=== PATIENT | male | born 1960 | race Caucasian/White ===

== ENCOUNTER 2017-12-12 13:01 | Day surgery (SDC) | payer OTHER, SELFPAY ==
--- NOTE | 2017-12-07 19:33 | PM.PROC.1 ---
Procedures Date/Time Date of procedure: 12/12/17 General Procedure description: Date of service: [] Preoperative diagnoses: 1. Right [] Cataract Postoperative diagnoses: 1. Cataract [] Procedure: Phacoemulsification with posterior chamber intraocular lens implant Surgeon: Tiki Herrera MD Complications: [] Specimen: None Implant:ZCBOO+22.5 Blood loss: None Anesthesia: Retrobulbar with monitored standby Anesthesiologist: [] Anne-Marie Description of procedure: Patient is a male year old with decreased vision due to cataract which is affecting activities of daily living. He wants surgery to improve vision. He has taken to the operating room and given IV sedation. A retrobulbar block insert consisting of 6 cc of 2% xylocaine without epinephrine mixed half and half with 0.5% Marcaine with 1 cc of hyaluronidase added is placed between the medial and lateral 1/3 of the inferior orbital rim. Lid akinesia is obtain with 1% xylocaine with epinephrine infiltrated along the lid margin. The eye is manually massaged for 30 sec, prepped using Betadine solution, and draped in the usual sterile fashion. Temporal approach was made, a 1 mm side-port incision was made at the 7:30 position. Phenylephrine 1.5% mixed with 1% xylocaine 0.2 cc was placed into the anterior chamber. Viscoat followed by Monica was then placed. A 2.6 mm clear incision with a 2.6 mm blade was placed at the 170 degree meridian. A 360 degree capsulorrhexis style capsulotomy was then performed with a cystitome needle on a Healon. Hydrodelineation and hydrodissection were performed. The phacoemulsification unit is introduced, and sculpting notice used to groove the central lens. It is then removed in chopping mode. Epi nucleus is removed with epinuclear mode and irrigation aspiration was used to remove the peripheral cortex. The posterior capsule is polished. The intraocular lens is selected, inspected, power confirmed, and placed in the posterior chamber. The pupil was constricted. The wound was stromally hydrated and tested for leaks, there was none and was left sutureless. Vigamox 0.1 cc was placed into the anterior chamber. Kenalog 0.2 cc was placed in the superior subconjunctival space. A drop of antibiotic and was placed and the eye was patched and shielded. The patient was stable and returned to the recovery room in excellent condition. Dictated by: Tiki Herrera MD Copy to: [facility]
--- NOTE | 2017-12-07 19:35 | PM.PREOP ---
Pre-operative Note Interval Note Pre-op Check: History & Physical Reviewed by Physician
[2017-12-12 13:13] VITALS: BP 146/89; PULSE 67; RESP 16; TEMP 36.9; O2SAT 100; BMI 25.1
[2017-12-12] MEDS: CATARACT EYE COMPOUND (10 DROPS/SYRINGE) 3 DROPS EYE-OP (13:15)
[2017-12-12] MEDS: PROPARACAINE 0.5% OPHTH SOL 2 DROPS EYE-OP (13:15)
--- NOTE | 2017-12-12 13:26 | PM.PREOP ---
Pre-operative Note Interval Note Pre-op Check: Yes History & Physical Reviewed by Physician Changes: No
[2017-12-12] MEDS: BALANCED SALT IRRIG SOLN NO.2 15 ML IRRIG.SOLN IRR (14:40)
[2017-12-12] MEDS: CHONDROIDTIN/SOD HYALURONATE 1.05 ML SYRINGE INTRAOCULA (14:40)
[2017-12-12] MEDS: LIDOCAINE 1% W/EPI INJ 20 ML INJ (14:41)
[2017-12-12] MEDS: MOXIFLOXACIN OPHTH DROPS 3 ML BOTTLE 2 DROPS INJ (14:41)
[2017-12-12] MEDS: HYALURONATE SODIUM 10 MG/ML SYRINGE INJ (14:41)
[2017-12-12] MEDS: TOBRA/DEX 0.3%/0.1% OPHTH OINT 1 APPLIC EYE-RIGHT (14:42)
[2017-12-12] MEDS: TRIAMCINOLONE 50 MG/5 ML VIAL INJ (14:42)
[2017-12-12] MEDS: PHENYLEPHRINE/LIDOCAINE 3ML VIAL (OR) EYE-OP (14:42)
[2017-12-12] MEDS: LIDOCAINE 2% 4 ML, BUPIVACAINE 0.5% (PF) 4 ML, HYALURONIDASE 150 UNIT INJ (14:45)
[2017-12-12 15:07] VITALS: BP 133/87; PULSE 59; RESP 16; TEMP 36.1; O2SAT 100
--- NOTE | 2017-12-12 15:11 | PM.OP.1 ---
Procedure & Clinicians Procedure: Date of service: November Preoperative diagnoses: 1. Right cortical Cataract Postoperative diagnoses: 1. Cataract status phacoemulsification and posterior chamber intraocular insertion Procedure: Phacoemulsification with posterior chamber intraocular lens implant Surgeon: Tiki Herrera MD Complications: None Specimen: None Implant: ZCBOO+22.5D Blood loss: None Anesthesia: Retrobulbar with monitored standby Anesthesiologist: Marcus Wolfe M.D. Description of procedure: Patient is a 57 year old with decreased vision due to cataract which is affecting activities of daily living. 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 He wants surgery to improve vision. He has taken to the operating room and given IV sedation. A retrobulbar block insert consisting of 6 cc of 2% xylocaine without epinephrine mixed half and half with 0.5% Marcaine with 1 cc of hyaluronidase added is placed between the medial and lateral 1/3 of the inferior orbital rim. Lid akinesia is obtain with 1% xylocaine with epinephrine infiltrated along the lid margin. The eye is manually massaged for 30 sec, prepped using Betadine solution, and draped in the usual sterile fashion. Temporal approach was made, a 1 mm side-port incision was made at the 7:30 position. Phenylephrine 1.5% mixed with 1% xylocaine 0.2 cc was placed into the anterior chamber. Viscoat followed by Monica was then placed. A 2.6 mm clear incision with a 2.6 mm blade was placed at the 170 degree meridian. A 360 degree capsulorrhexis style capsulotomy was then performed with a cystitome needle on a Healon and completed with a Utrata forcep. Hydrodelineation and hydrodissection were performed. The phacoemulsification unit is introduced, and sculpting notice used to groove the central lens. It is then removed in chopping mode. Epi nucleus is removed with epinuclear mode and irrigation aspiration was used to remove the peripheral cortex. The posterior capsule is polished. The intraocular lens is selected, inspected, power confirmed, and placed in the posterior chamber. The pupil was constricted. The wound was stromally hydrated and tested for leaks, there was none and was left sutureless. Vigamox 0.1 cc was placed into the anterior chamber. Kenalog 0.2 cc was placed in the superior subconjunctival space. A drop of antibiotic and was placed and the eye was patched and shielded. The patient was stable and returned to the recovery room in excellent condition. Dictated by: Tiki Herrera MD Copy to: [facility]
--- NOTE | 2017-12-12 16:38 | PM.OP.1 ---
Operative Date/Time/Diagnoses Date of procedure: 12/12/17 Time of procedure: 15:00 Pre-op diagnosis: Right cataract.See operative report.
== END 2017-12-12 15:22 | disposition home or self-care (01) ==
LOC: OR 13:03
PROVIDERS: PCP Internal Medicine; Visit Provider Ophthalmology
DX: H25.11 Age-related nuclear cataract, right eye (principal)
CPT/HCPCS: J2250; J2704; J3010; J3301; J3470

== ENCOUNTER 2017-12-19 09:14 | Day surgery (SDC) | payer OTHER, SELFPAY ==
--- NOTE | 2017-11-30 17:29 | P.OP.PRE_ITS ---
Pre-operative Note Interval Note Pre-op Check: History & Physical Reviewed by Physician
[2017-12-19 11:10] VITALS: BP 145/83; PULSE 73; RESP 16; TEMP 36.6; O2SAT 97; BMI 25.7
[2017-12-19] MEDS: PROPARACAINE 0.5% OPHTH SOL 2 DROPS EYE-OP (11:18)
--- NOTE | 2017-12-19 11:20 | PM.PREOP ---
Pre-operative Note Interval Note Pre-op Check: Yes History & Physical Reviewed by Physician Changes: No H&P completed within 30 days and has changed as indicated here:: Arm rash. no eye findings. Can proceed with surgery.
[2017-12-19] MEDS: CATARACT EYE COMPOUND (10 DROPS/SYRINGE) 3 DROPS EYE-OP (11:24)
--- NOTE | 2017-12-19 12:35 | PM.OP.1 ---
Procedure & Clinicians Procedure: Date of service: December 19, 2017 Preoperative diagnoses: 1. Nuclear sclerotic Cataract 2. Allergic rash Postoperative diagnoses: 1. Cataract status post cataract removal with posterior chamber interocular lens implant and use of capsular dye for visibility. Procedure: Phacoemulsification with posterior chamber intraocular lens implant Surgeon: Tiki Herrera MD Complications: None Specimen: None Implant: +23.0 Blood loss: None Anesthesia: Retrobulbar with monitored standby Anesthesiologist: Prabhu Khan M.D. 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 He wants surgery to improve vision. He has taken to the operating room and given IV sedation. A retrobulbar block insert consisting of 6 cc of 2% xylocaine without epinephrine mixed half and half with 0.5% Marcaine with 1 cc of hyaluronidase added is placed between the medial and lateral 1/3 of the inferior orbital rim. Lid akinesia is obtain with 1% xylocaine with epinephrine infiltrated along the lid margin. The eye is manually massaged for 30 sec, prepped using Betadine solution, and draped in the usual sterile fashion. Temporal approach was made, a 1 mm side-port incision was made at the 12 o'clock meridian. Phenylephrine 1.5% mixed with 1% xylocaine 0.2 cc was placed into the anterior chamber. To improve visibility an air bubble was placed followed by capsular dye. Viscoat followed by Healon was then placed. A 2.6 mm clear incision with a 2.6 mm blade was placed at the 3 o'clock meridian. A 360 degree capsulorrhexis style capsulotomy was then performed with a cystitome needle on a Healon. Hydrodelineation and hydrodissection were performed. The phacoemulsification unit is introduced, and sculpting notice used to groove the central lens. It is then removed in chopping mode. Epi nucleus is removed with epinuclear mode and irrigation aspiration was used to remove the peripheral cortex. The posterior capsule is polished. The intraocular lens is selected, inspected, power confirmed, and placed in the posterior chamber. The pupil was constricted. The wound was stromally hydrated and tested for leaks, there was none and was left sutureless. Vigamox 0.1 cc was placed into the anterior chamber. Kenalog 0.2 cc was placed in the superior subconjunctival space. A drop of antibiotic and was placed and the eye was patched and shielded. The patient was stable and returned to the recovery room in excellent condition. Dictated by: Tiki Herrera MD Copy to: [facility]
--- NOTE | 2017-12-19 12:38 | P.OP_ITS ---
Procedure & Clinicians Procedure: Date of service: December 19, 2017 Preoperative diagnoses: 1. Nuclear sclerotic Cataract 2. Allergic rash Postoperative diagnoses: 1. Cataract status post cataract removal with posterior chamber interocular lens implant and use of capsular dye for visibility. Procedure: Phacoemulsification with posterior chamber intraocular lens implant Surgeon: Tiki Herrera MD Complications: None Specimen: None Implant: +23.0 Blood loss: None Anesthesia: Retrobulbar with monitored standby Anesthesiologist: Prabhu Khan M.D. 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 He wants surgery to improve vision. He has taken to the operating room and given IV sedation. A retrobulbar block insert consisting of 6 cc of 2% xylocaine without epinephrine mixed half and half with 0.5% Marcaine with 1 cc of hyaluronidase added is placed between the medial and lateral 1/3 of the inferior orbital rim. Lid akinesia is obtain with 1% xylocaine with epinephrine infiltrated along the lid margin. The eye is manually massaged for 30 sec, prepped using Betadine solution, and draped in the usual sterile fashion. Temporal approach was made, a 1 mm side-port incision was made at the 12 o' clock meridian. Phenylephrine 1.5% mixed with 1% xylocaine 0.2 cc was placed into the anterior chamber. To improve visibility an air bubble was placed followed by capsular dye. Viscoat followed by Healon was then placed. A 2.6 mm clear incision with a 2.6 mm blade was placed at the 3 o'clock meridian. A 360 degree capsulorrhexis style capsulotomy was then performed with a cystitome needle on a Healon. Hydrodelineation and hydrodissection were performed. The phacoemulsification unit is introduced, and sculpting notice used to groove the central lens. It is then removed in chopping mode. Epi nucleus is removed with epinuclear mode and irrigation aspiration was used to remove the peripheral cortex. The posterior capsule is polished. The intraocular lens is selected, inspected, power confirmed, and placed in the posterior chamber. The pupil was constricted. The wound was stromally hydrated and tested for leaks, there was none and was left sutureless. Vigamox 0.1 cc was placed into the anterior chamber. Kenalog 0.2 cc was placed in the superior subconjunctival space. A drop of antibiotic and was placed and the eye was patched and shielded. The patient was stable and returned to the recovery room in excellent condition. Dictated by: Tiki Herrera MD Copy to: [facility]
[2017-12-19] MEDS: CARBACHOL 1.5 ML VIAL INJ (13:13)
[2017-12-19] MEDS: LIDOCAINE 1% W/EPI INJ 20 ML INJ (13:13)
[2017-12-19] MEDS: CHONDROIDTIN/SOD HYALURONATE 1.05 ML SYRINGE INTRAOCULA (13:13)
[2017-12-19] MEDS: BALANCED SALT IRRIG SOLN NO.2 15 ML IRRIG.SOLN IRR (13:13)
[2017-12-19] MEDS: HYALURONATE SODIUM 10 MG/ML SYRINGE INJ (13:13)
[2017-12-19] MEDS: MOXIFLOXACIN OPHTH DROPS 3 ML BOTTLE 2 DROPS INJ (13:14)
[2017-12-19] MEDS: NEOMYCIN/POLY/DEX OPHTH OINT 1 APPLIC EYE-LEFT (13:14)
[2017-12-19] MEDS: OFLOXACIN 0.3% OPHTH 5 ML 2 DROPS EYE-LEFT (13:15)
[2017-12-19] MEDS: PHENYLEPHRINE/LIDOCAINE 3ML VIAL (OR) EYE-OP (13:15)
[2017-12-19] MEDS: TRYPAN BLUE 0.5 ML SYRINGE INJ (13:16)
[2017-12-19] MEDS: BALANCED SALT IRRIG SOLN NO.2 500 ML, EPINEPHrine 1 MG IRR (13:16)
[2017-12-19] MEDS: TRIAMCINOLONE 50 MG/5 ML VIAL INJ (13:16)
[2017-12-19] MEDS: LIDOCAINE 2% 4 ML, BUPIVACAINE 0.5% (PF) 4 ML, HYALURONIDASE 150 UNIT INJ (13:16)
[2017-12-19] MEDS: LIDOCAINE JELLY 2% 5 ML 1 APPLIC TOP (13:18)
[2017-12-19 13:39] VITALS: BP 138/94; PULSE 69; RESP 16; TEMP 36.2; O2SAT 98
== END 2017-12-19 13:57 | disposition home or self-care (01) ==
PROVIDERS: PCP Internal Medicine; Visit Provider Ophthalmology
DX: H25.12 Age-related nuclear cataract, left eye (principal)
CPT/HCPCS: J0171; J2704; J3010; J3301; J3470

== ENCOUNTER 2019-07-22 07:35 | Day surgery (SDC) | payer OTHER, SELFPAY ==
[2019-07-22 08:13] VITALS: BP 154/90; PULSE 75; RESP 18; TEMP 36.8; O2SAT 99; BMI 26.5
[2019-07-22] MEDS: SODIUM CHLORIDE 0.9% 1,000 ML 200 ML IV (08:20)
--- NOTE | 2019-07-22 08:42 | PM.HP.1 ---
History of Present Illness History of Present Illness Date Patient Seen: 07/22/19 Time Patient Seen: 08:42 Chief complaint: [id number] Narrative: Patient is a gentleman here for screening colonoscopy. His last exam was 5 years ago. He had polyps removed at that time. Patient History Surgical History (Updated 07/22/19 @ 08:42 by Desean Munson MD) H/O bilateral cataract extraction (Acute) Family & Social History Social History: household members spouse Tobacco & Substance use: Smoking Status Never smoker alcohol intake current alcohol intake frequency a few times a week Substance Use Type does not use Meds Home Medications and Allergies Allergies Allergy/AdvReac Type Severity Reaction Status Date / Time No Known Drug Allergies Allergy Verified 07/22/19 08:19 Review of Systems Review of Systems ROS: Yes All systems reviewed with the patient and are negative except as otherwise documented Exam Vital Signs (past 8 hours): - 07/22/19 08:13 Temperature 98.3 F Pulse Rate 75 Respiratory Rate 18 Blood Pressure 154/90 H Pulse Oximetry 99 Oxygen Delivery Method Room Air Narrative Exam Narrative: Pleasant cooperative patient no apparent distress. Lungs are clear to auscultation. No rales or rhonchi. Heart regular rate and rhythm no murmur gallop. Abdomen is soft nontender without mass. No obvious hernias. Patient is alert and oriented x3. Assessment & Plan Assessment & Plan narrative: The patient for a screening colonoscopy. I have discussed the procedure with them. Risks of bleeding, perforation which would necessitate major operation, failure to find remove all lesions, the potential tattoo were all discussed. All questions were answered. They wished to proceed.
--- NOTE | 2019-07-22 08:43 | PM.PREOP ---
Pre-operative Note Interval Note History & Physical reviewed/Exam performed by Physician: Yes Changes to H&P: No ASA Class (for procedural sedation): I
[2019-07-22] MEDS: fentaNYL 250 MCG/5 ML INJ IV (09:02)
[2019-07-22] MEDS: MIDAZOLAM 5 MG/ML VIAL 4 MG IV (09:03)
[2019-07-22 09:18] VITALS: BP 121/83; PULSE 87; RESP 13; TEMP 36.6; O2SAT 95
[2019-07-22 09:23] VITALS: BP 118/79; PULSE 91; RESP 10; O2SAT 95
--- NOTE | 2019-07-22 09:34 | PM.OP.ENDO ---
Operative Date/Time/Diagnoses Date of procedure: 07/22/19 Time of procedure: 09:34 Pre-op diagnosis: Screening. Last exam 5 years ago. Post-op diagnosis: same (Sigmoid diverticulosis) Procedure & Clinicians Study performed: Colonoscopy Same procedure as scheduled: Yes Indications: Screening Surgeon: Desean Munson Procedure Notes SCOAP/Timeout: Performed Procedure in detail: The patient was placed in the left lateral decubitus position and underwent IV sedation directed by the surgeon consisting of fentanyl and Versed. Digital exam was unremarkable. The scope was inserted and advanced through the rectum into the sigmoid, descending, transverse, and ascending colon. The patient was repositioned pressure applied a stiffener inserted and I finally made my way to visualize a portion of the cecum which was unremarkable. The scope was gradually brought out. No Polyps were found. The scope ultimately was retroflexed in the rectum. The appearance was normal. The scope was removed and the patient tolerated the procedure well. Prep was good. Scope withdrawal time: 6 minutes Sedation minutes: 29 Findings: diverticulosis (Sigmoid) Specimen(s): none sent Complications: none Post-procedure Recommendations: Colonscopy in 5 years (Due to history of polyps) Follow up: as needed Disposition: PACU
[2019-07-22 09:40] VITALS: BP 115/77; PULSE 83; RESP 15; TEMP 36.8; O2SAT 96
== END 2019-07-22 09:55 | disposition home or self-care (01) ==
PROVIDERS: PCP Internal Medicine; Referring Provider Internal Medicine; Visit Provider Specialist
PROC: 0DJD8ZZ Inspection of Lower Intestinal Tract, Via Natural or Artificial Opening Endoscopic (ICD-10-PCS; CPT 45378; principal; 2019-07-22 08:45)
DX: Z12.11 Encounter for screening for malignant neoplasm of colon (principal); Z86.010 Personal history of colon polyps; K57.30 Diverticulosis of large intestine without perforation or abscess without bleeding
CPT/HCPCS: G0105; 99152; 99153; J2250; J3010

== ENCOUNTER → 2021-04-05 15:35 | Outpatient (CLI) | payer OTHER, SELFPAY ==
--- NOTE | 2021-04-05 | DI.MRI.S_ITS ---
PROCEDURE: MR ORBITS FACE NECK WO CON INDICATIONS: 61-year-old male with right-sided prandial jaw pain TECHNIQUE: Multiplanar multisequential MRI images of the maxillofacial structures were obtained without contrast. COMPARISON: None. FINDINGS: Mandible: There is nonspecific marrow edema in the right anterior mandible associated with 1 x 1.8 x 1.4 cm irregular fluid collection overlying soft tissues. Possible cortical thinning noted in the anterior alveolar ridge of the mandible. Soft tissues: As above. Orbits: The osseous orbits, globes and ocular muscles unremarkable. Bilateral intraocular lens replacements noted. Sinuses and Mastoid: Left maxillary sinus retention cyst measures 2 cm. No osseous expansion. Remainder of the paranasal sinuses are clear Skull base: Visualized portions of the brain, pituitary and brainstem unremarkable. IMPRESSION: 1. Anterior right mandibular marrow edema associated with soft tissue irregular fluid collection probably reflects dental abscess. Consider follow-up CT with contrast to evaluate dentition and cortical integrity. Approved by: Jose Pederson M.D. on 04/05/2021 at 15:59
== END ==
PROVIDERS: PCP Internal Medicine; Referring Provider Dentist Oral and Maxillofacial Surgery; Visit Provider Dentist Oral and Maxillofacial Surgery
DX: M27.9 Disease of jaws, unspecified (principal); R93.0 Abnormal findings on diagnostic imaging of skull and head, not elsewhere classified
CPT/HCPCS: 70540